=== PATIENT | female | born 1965 | race Two or more races ===

== ENCOUNTER 2022-08-01 05:39 | Day surgery (SDC) | payer OTHER ==
[~2022-08-01] VITALS: Ht 160 cm; Wt 85.7 kg
[~2022-08-01 05:39] MED LIST: ALDACTONE25 MG PO; CLONAZEPAM1 MG PO; CRESTOR40 MG PO; EFFEXOR XR150 MG PO; LEVO-T150 MCG PO; LOSARTAN POTASS50 MG PO; METFORMIN HCL500 M3 PO; NORVASC2.5 MG PO; TOPROL XL25 M1 PO
[2022-08-01] MEDS ORDERED: TRAM1TAB98 PO (10:30)
== END 2022-08-01 12:30 | disposition home or self-care (01) ==
LOC: CIR.AMB 05:39
PROVIDERS: ATTEND Surgery
DX: R15.9 Full incontinence of feces (principal); R19.4 Change in bowel habit; R19.7 Diarrhea, unspecified; Z86.16 Personal history of COVID-19; I10 Essential (primary) hypertension; E03.9 Hypothyroidism, unspecified; E11.9 Type 2 diabetes mellitus without complications; Z79.84 Long term (current) use of oral hypoglycemic drugs; Z20.822 Contact with and (suspected) exposure to COVID-19
CPT/HCPCS: 64581; 95971; C1778

== ENCOUNTER 2022-08-22 05:15 | Day surgery (SDC) | payer OTHER ==
[~2022-08-22 05:15] MED LIST changes: +TRAM1TAB98 PO
[2022-08-22] MEDS ORDERED: TRAM1TAB98 PO (08:59)
== END 2022-08-22 10:30 | disposition home or self-care (01) ==
LOC: CIR.AMB 05:15
PROVIDERS: ATTEND Surgery
DX: R15.9 Full incontinence of feces (principal); N81.6 Rectocele; R19.4 Change in bowel habit; R19.7 Diarrhea, unspecified; I10 Essential (primary) hypertension; Z86.16 Personal history of COVID-19; E11.9 Type 2 diabetes mellitus without complications; E03.9 Hypothyroidism, unspecified; Z79.84 Long term (current) use of oral hypoglycemic drugs; Z20.822 Contact with and (suspected) exposure to COVID-19
CPT/HCPCS: 64590; 95972; L8679